=== PATIENT | female | born 1970 | race Two or more races ===

== ENCOUNTER 2020-11-04 00:23 | Emergency (ER) | payer MEDICAID ==
[~2020-11-04] VITALS: Ht 160 cm; Wt 94.8 kg
[2020-11-04 02:39] VITALS: BP 121/88
== END 2020-11-04 03:34 | disposition home or self-care (01) ==
LOC: ER 00:23
DX: S66.811A Strain of other specified muscles, fascia and tendons at wrist and hand level, right hand, initial encounter (principal); F31.9 Bipolar disorder, unspecified; F43.10 Post-traumatic stress disorder, unspecified; Z88.0 Allergy status to penicillin; Y04.0XXA Assault by unarmed brawl or fight, initial encounter; Y93.89 Activity, other specified; Y92.89 Other specified places as the place of occurrence of the external cause; Y99.8 Other external cause status
CPT/HCPCS: 73130